=== PATIENT | male | born 2000 | race Caucasian/White ===

== ENCOUNTER 2022-08-14 18:06 | Emergency (ER) | payer BC, SELFPAY ==
--- OUTSIDE RECORDS SUMMARY | 2022-08-14 18:10 | XMS REPORT | Continuity of Care Document ---
:2000 Author Organization [facility] t Address [address] [place] [address] [place] [id number] Care Team Providers Name Role Phone Cris Townsend I Attending Clinician Unavailable Payers Payer Name Policy Type Policy Number Effective Date Expiration Date S ource Problems This patient has no known problems. Allergies, Adverse Reactions, Alerts This patient has no known allergies or adverse reactions. Medications This patient has no known medications. Procedures This patient has no known procedures. Encounters Start End Encounter Admission Attending Care Care Encounter Source Date/Time Date/Time Type Type Clinicians Facility Department ID 2022-01-28 2022-01-29 Emergency ER [place] [facility] STLSJX [id number] STLSJX 21:12:00 01:01:00 Cris -[id number] Results This patient has no known results.
[2022-08-14] MEDS ORDERED: ONDANSETRON 4 MG (ODT) TAB ONE (18:28)
[2022-08-14] MEDS ORDERED: PROMETHAZINE INJ 25 MG/ML AMP ONE (18:31)
[2022-08-14] MEDS ORDERED: NA CHLORIDE 0.9% 2,000 ML ONE (18:31)
[2022-08-14] MEDS ORDERED: NA CHLORIDE 0.9% 250 ML ONE (18:31)
[2022-08-14] MEDS ORDERED: KETOROLAC 30 MG/ML INJ ONE (18:31)
[2022-08-14 18:50] LABS: Absolute Lymphocytes (CBC) 0.2 K/uL (0.7-4.9); Hematocrit 49.8 % (39.6-49.0); Lymphocytes % 1.6 % (15.3-44.8); MCV 86.8 fL (80-100); MPV 7.9 fL (7.6-11.3); RBC Red Blood Cell Count 5.73 M/uL (4.33-5.43)
[2022-08-14 19:09] LABS: Albumin 5.1 g/dL (3.4-5.0); Bilirubin Total 0.7 mg/dL (0.2-1.0); Potassium 4.4 mEq/L (3.5-5.1); Protein, Total 9.4 g/dL (6.4-8.2)
[2022-08-14] MEDS ORDERED: NA CHLORIDE 0.9% 1,000 ML ONE (21:10)
--- NOTE | 2022-08-14 22:36 | ER ---
Nurse's Notes [facility] Name: Norman Charlton Age: 21 yrs Sex: Male : 2000 Arrival Date: 08/14/2022 Time: 18:06 Bed 14 Private MD: Diagnosis: Nausea with vomiting, unspecified;Diarrhea, unspecified;Dehydration Presentation: 08/14 18:11 Chief complaint: N/V/D, upper abdominal pain, and body aches since this morning. Not hb tolerating fluids. Coronavirus screen: Client presents with at least one sign or symptom that may indicate coronavirus-19. Provider contacted for isolation considerations. Ebola Screen: No symptoms or risks identified at this time. Initial Sepsis Screen: Does the patient meet any 2 criteria? No. Patient's initial sepsis screen is negative. Does the patient have a suspected source of infection? No. Patient's initial sepsis screen is negative. Risk Assessment: Do you want to hurt yourself or someone else? Patient reports no desire to harm self or others. Onset of symptoms was August 14, 2022. 18:11 Method Of Arrival: Ambulatory hb 18:11 Acuity: IDALIA 3 hb Triage Assessment: 18:17 General: Appears in no apparent distress. ill, Behavior is calm, cooperative. Pain: hb Pain currently is 7 out of 10 on a pain scale. Neuro: Level of Consciousness is awake, alert, obeys commands, Oriented to person, place, time, situation. Cardiovascular: Patient's skin is warm and dry. Respiratory: Respiratory effort is even, unlabored, Respiratory pattern is regular, symmetrical. GI: Reports upper abdominal pain, diarrhea, nausea, vomiting. Historical: - Allergies: 18:13 No Known Allergies; hb - Home Meds: 18:13 None [Active]; hb - PMHx: 18:13 None; hb - PSHx: 18:13 None; hb - Immunization history:: Adult Immunizations up to date. - Social history:: Smoking status: Patient denies any tobacco usage or history of. Screenin:45 [facility] ED Fall Risk Assessment (Adult) History of falling in the last 3 months, vc1 including since admission No falls in past 3 months (0 pts) Confusion or Disorientation No (0 pts) Intoxicated or Sedated No (0 pts) Impaired Gait No (0 pts) Mobility Assist Device Used No (0 pt) Altered Elimination No (0 pt) Score/Fall Risk Level 0 - 2 = Low Risk Oriented to surroundings, Maintained a safe environment, Educated pt \T\ family on fall prevention, incl call for assistance when getting out of bed. Abuse screen: Denies threats or abuse. Nutritional screening: No deficits noted. Tuberculosis screening: No symptoms or risk factors identified. Assessment: 20:00 Reassessment: No changes from previously documented assessment. Patient and/or family vc1 updated on plan of care and expected duration. Pain level reassessed. assumed care of patient. 21:00 Reassessment: Patient and/or family updated on plan of care and expected duration. Pain vc1 level reassessed. Patient states symptoms have improved. 22:00 Reassessment: No changes from previously documented assessment. Patient and/or family vc1 updated on plan of care and expected duration. Pain level reassessed. 23:00 Reassessment: Patient and/or family updated on plan of care and expected duration. Pain vc1 level reassessed. Patient states feeling better. Patient states symptoms have improved. Vital Signs: 18:11 BP 95 / 67; Pulse 92; Resp 18; Temp 98(TE); Pulse Ox 98% on R/A; Weight 80.29 kg; hb Height 6 ft. 0 in. ; Pain 7/10; 19:50 BP 113 / 54; Pulse 77; Resp 18; Temp 98.9; Pulse Ox 98% ; bc6 20:30 BP 104 / 66; Pulse 75; Resp 18; Pulse Ox 100% ; vc1 20:50 BP 125 / 59 Supine; Pulse 89; vc1 20:51 BP 111 / 81 Sitting; Pulse 87; vc1 20:52 BP 109 / 77 Standing; Pulse 106; vc1 21:30 BP 108 / 61; Pulse 76; Resp 17; Pulse Ox 100% on R/A; vc1 22:30 BP 123 / 60; Pulse 89; Resp 17; Pulse Ox 100% ; vc1 18:11 Body Mass Index 24.01 (80.29 kg, 182.88 cm) hb 18:11 Pain Scale: Adult hb ED Course: 18:07 Patient arrived in ED. ts1 18:10 Stella Alcala FNP-C is PHCP. snw 18:10 Devyn Hernandez MD is Attending Physician. snw 18:12 Triage completed. hb 18:13 Arm band placed on. hb 18:45 Inserted saline lock: 20 gauge in right antecubital area, using aseptic technique. kc6 Blood collected. 19:45 Patient has correct armband on for positive identification. Bed in low position. Call vc1 light in reach. Pulse ox on. NIBP on. 20:34 Apple Shields, RN is Primary Nurse. vc1 23:10 No provider procedures requiring assistance completed. IV discontinued. vc1 Administered Medications: 18:22 Drug: Ondansetron PO 4 mg Route: PO; hb 18:39 Drug: NS 0.9% IV 1000 ml Route: IV; Rate: 1000 ml; Site: left antecubital; hb 18:39 Drug: Ketorolac IVP 15 mg Route: IVP; Site: left antecubital; hb 18:39 Drug: Promethazine IVP 25 mg Route: IVP; Site: left antecubital; hb 18:39 Drug: NS 0.9% IV 1000 ml Route: IV; Rate: 1 bolus; Site: left antecubital; hb 21:31 Drug: NS 0.9% IV 1000 ml Route: IV; Rate: 1 bolus; Site: right antecubital; vc1 21:51 Not Given (Other Intervention Used): NS 0.9% IV 250 ml IV at bolus once vc1 Medication: 23:11 VIS not applicable for this client. vc1 Outcome: 22:36 Discharge ordered by MD. snw 23:10 Discharged to home ambulatory. vc1 23:10 Condition: good 23:10 Discharge instructions given to patient, Instructed on discharge instructions, follow up and referral plans. medication usage, Demonstrated understanding of instructions, follow-up care, medications, Prescriptions given X 2. 23:12 Patient left the ED. vc1 Signatures: Stella Alcala, BRAIDING OPERATOR-C BRAIDING OPERATOR-Csnw Mariel Olson RN ZECHARIAH hb Apple Shields, RN RN vc1 Nelida Cisse RN RN kc6 Kaela Falcon6 Natasha Santos PAS PAS ts1 Corrections: (The following items were deleted from the chart) 18:13 18:11 Chief complaint: N/V/D and body aches since this morning. hb hb 18:17 18:11 Chief complaint: N/V/D, abdominal pain, and body aches since this morning. Not hb tolerating fluids hb
--- NOTE | 2022-08-14 22:37 | EDPHYS ---
Physician Documentation [facility] Name: Norman Charlton Age: 21 yrs Sex: Male : 2000 Arrival Date: 08/14/2022 Time: 18:06 Bed 14 Private MD: ED Physician Devyn Hernandez HPI: 08/14 18:25 This 21 yrs old Male presents to ER via Ambulatory with complaints of Abdominal Pain, snw Nausea/Vomiting. 18:25 The patient presents with abdominal pain in the upper abdomen. Onset: The snw symptoms/episode began/occurred suddenly, this morning. The symptoms do not radiate. Associated signs and symptoms: Pertinent positives: nausea, vomiting, and diarrhea. The symptoms are described as crampy. Severity of pain: At its worst the pain was moderate. The patient has not experienced similar symptoms in the past, but family has similar symptoms. The patient has not recently seen a physician. Historical: - Allergies: 18:13 No Known Allergies; hb - Home Meds: 18:13 None [Active]; hb - PMHx: 18:13 None; hb - PSHx: 18:13 None; hb - Immunization history:: Adult Immunizations up to date. - Social history:: Smoking status: Patient denies any tobacco usage or history of. ROS: 18:23 Eyes: Negative for injury, pain, redness, and discharge, ENT: Negative for injury, snw pain, and discharge, Neck: Negative for injury, pain, and swelling, Cardiovascular: Negative for chest pain, palpitations, and edema, Respiratory: Negative for shortness of breath, cough, wheezing, and pleuritic chest pain. 18:23 Back: Negative for injury and pain, : Negative for injury, bleeding, discharge, and swelling, MS/Extremity: Negative for injury and deformity, Skin: Negative for injury, rash, and discoloration, Neuro: Negative for headache, weakness, numbness, tingling, and seizure, Psych: Negative for depression, anxiety, suicide ideation, homicidal ideation, and hallucinations. 18:23 Constitutional: Positive for body aches, malaise. 18:23 Abdomen/GI: Positive for abdominal pain, nausea and vomiting, of the epigastric area, right upper quadrant and left upper quadrant. Exam: 18:22 Head/Face: Normocephalic, atraumatic. Eyes: Pupils equal round and reactive to light, snw extra-ocular motions intact. Lids and lashes normal. Conjunctiva and sclera are non-icteric and not injected. Cornea within normal limits. Periorbital areas with no swelling, redness, or edema. ENT: Nares patent. No nasal discharge, no septal abnormalities noted. Tympanic membranes are normal and external auditory canals are clear. Oropharynx with no redness, swelling, or masses, exudates, or evidence of obstruction, uvula midline. Mucous membranes moist. Neck: Trachea midline, no thyromegaly or masses palpated, and no cervical lymphadenopathy. Supple, full range of motion without nuchal rigidity, or vertebral point tenderness. No Meningismus. Chest/axilla: Normal chest wall appearance and motion. Nontender with no deformity. No lesions are appreciated. Cardiovascular: Regular rate and rhythm with a normal S1 and S2. No gallops, murmurs, or rubs. Normal PMI, no JVD. No pulse deficits. Respiratory: Lungs have equal breath sounds bilaterally, clear to auscultation and percussion. No rales, rhonchi or wheezes noted. No increased work of breathing, no retractions or nasal flaring. 18:22 Back: No spinal tenderness. No costovertebral tenderness. Full range of motion. MS/ Extremity: Pulses equal, no cyanosis. Neurovascular intact. Full, normal range of motion. Neuro: Awake and alert, GCS 15, oriented to person, place, time, and situation. Cranial nerves II-XII grossly intact. Motor strength 5/5 in all extremities. Sensory grossly intact. Cerebellar exam normal. Normal gait. 18:22 Constitutional: The patient appears alert, awake, anxious, listless, pale, uncomfortable. 18:22 Abdomen/GI: Inspection: abdomen appears normal, Bowel sounds: hyperactive, in all quadrants, Palpation: mild abdominal tenderness, in the epigastric area, right upper quadrant and left upper quadrant. 18:22 Skin: Appearance: Color: pale, Temperature: normal temperature, Moisture: dry. Vital Signs: 18:11 BP 95 / 67; Pulse 92; Resp 18; Temp 98(TE); Pulse Ox 98% on R/A; Weight 80.29 kg; hb Height 6 ft. 0 in. ; Pain 7/10; 19:50 BP 113 / 54; Pulse 77; Resp 18; Temp 98.9; Pulse Ox 98% ; bc6 20:30 BP 104 / 66; Pulse 75; Resp 18; Pulse Ox 100% ; vc1 20:50 BP 125 / 59 Supine; Pulse 89; vc1 20:51 BP 111 / 81 Sitting; Pulse 87; vc1 20:52 BP 109 / 77 Standing; Pulse 106; vc1 21:30 BP 108 / 61; Pulse 76; Resp 17; Pulse Ox 100% on R/A; vc1 22:30 BP 123 / 60; Pulse 89; Resp 17; Pulse Ox 100% ; vc1 18:11 Body Mass Index 24.01 (80.29 kg, 182.88 cm) hb 18:11 Pain Scale: Adult hb MDM: 18:10 Patient medically screened. snw 22:19 ED course: 2044 Orthostatics + with increase in HR >20 from sitting to standing, one snw more liter NS to be given. 22:21 Differential diagnosis: gastritis, gastroesophageal reflux disease, non-specific abd snw pain, pancreatitis. Data reviewed: vital signs, nurses notes, lab test result(s). Historians other than the Patient: Family Member: Brother. Counseling: I had a detailed discussion with the patient and/or guardian regarding: the historical points, exam findings, and any diagnostic results supporting the discharge/admit diagnosis, lab results, the need for outpatient follow up, for definitive care, to return to the emergency department if symptoms worsen or persist or if there are any questions or concerns that arise at home. Response to treatment: the patient's symptoms have markedly improved after treatment. Special discussion: Based on the history and exam findings, there is no indication for further emergent testing or inpatient evaluation. I discussed with the patient/guardian the need to see the primary care provider for further evaluation of the symptoms. 08/14 18:19 Order name: CBC with Diff; Complete Time: 19:20 snw 08/14 18:19 Order name: CMP; Complete Time: 19:20 snw 08/14 19:21 Order name: Recheck VS; Complete Time: 19:51 snw 08/14 20:28 Order name: Orthostatics; Complete Time: 21:51 snw Administered Medications: 18:22 Drug: Ondansetron PO 4 mg Route: PO; hb 18:39 Drug: NS 0.9% IV 1000 ml Route: IV; Rate: 1000 ml; Site: left antecubital; hb 18:39 Drug: Ketorolac IVP 15 mg Route: IVP; Site: left antecubital; hb 18:39 Drug: Promethazine IVP 25 mg Route: IVP; Site: left antecubital; hb 18:39 Drug: NS 0.9% IV 1000 ml Route: IV; Rate: 1 bolus; Site: left antecubital; hb 21:31 Drug: NS 0.9% IV 1000 ml Route: IV; Rate: 1 bolus; Site: right antecubital; vc1 21:51 Not Given (Other Intervention Used): NS 0.9% IV 250 ml IV at bolus once vc1 Disposition Summary: 08/14/22 22:36 Discharge Ordered Location: Home snw Condition: Stable snw Diagnosis - Nausea with vomiting, unspecified snw - Diarrhea, unspecified snw - Dehydration snw Followup: snw - With: Emergency Department - When: As needed - Reason: Worsening of condition Followup: snw - With: Private Physician - When: 2 - 3 days - Reason: Recheck today's complaints, Continuance of care, Re-evaluation by your physician Discharge Instructions: - Discharge Summary Sheet snw - Food Choices to Help Relieve Diarrhea, Adult snw - Dehydration, Adult snw - Diarrhea, Adult snw - Nausea and Vomiting, Adult snw - Rehydration, Adult snw Forms: - Work release form snw - Medication Reconciliation Form snw - Thank You Letter snw - Antibiotic Education snw - Prescription Opioid Use snw Prescriptions: - promethazine 25 mg Oral Tablet - take 1 tablet by ORAL route every 6 hours As needed; 20 tablet; Refills: 0, snw Product Selection Permitted - dicyclomine 20 mg Oral Tablet - take 1 tablet by ORAL route 3 times per day; 30 tablet; Refills: 0, Product snw Selection Permitted Signatures: Dispatcher [employer] EDStella Luna FNP-C FNP-Rocaelw Mariel Olson RN RN Apple Leong RN RN vc1 Corrections: (The following items were deleted from the chart) 22:23 22:19 ED course: Orthostatics + with increase in HR >20 from sitting to standing, one snw more liter NS to be given. snw
[2022-08-14 23:48] VITALS: TEMP 98.9
[2022-08-14 23:49] VITALS: O2SAT 100
[2022-08-14 23:58] VITALS: BP 123/60
== END 2022-08-14 23:12 | disposition home or self-care (01) ==
LOC: ER 18:06
DX: E86.0 Dehydration (principal); R19.7 Diarrhea, unspecified
CPT/HCPCS: 36415; 80053; 85025; 96374; 96375; 99284; J2550; J7030; J7050; Q0162